=== PATIENT | female | born 1980 | race Caucasian/White ===

== ENCOUNTER 2024-04-11 20:25 | Emergency (ER) | payer SELFPAY ==
[~2024-04-11] VITALS: Ht 172.7 cm; Wt 54.4 kg
[2024-04-11 20:29] VITALS: BP_SYST 149; PULSE 98; RESP 19; TEMP 98; O2SAT 96
[2024-04-11 20:57] VITALS: BP_SYST 149; PULSE 98; RESP 19; TEMP 98; O2SAT 96
== END 2024-04-11 21:01 ==
LOC: SED 20:25
DX: S22.31XD Fracture of one rib, right side, subsequent encounter for fracture with routine healing (principal); Z88.6 Allergy status to analgesic agent; X58.XXXD Exposure to other specified factors, subsequent encounter
CPT/HCPCS: 99283